=== PATIENT | male | born 1940 | race Caucasian/White ===

== ENCOUNTER 2016-11-29 06:22 | Day surgery (SDC) | payer OTHER ==
--- NOTE | ~2016-11-29 | EGD ---
EGD REPORT [facility] [address] [place]. [address] NAME: HARSHAD COBB : [birth year] STATUS : REG [facility] [place] PAT#: [id number] AGE: 76 ADM/REG DATE : 11/29/16 MR#: [id number] REPORT SERV DATE: 11/29/16 DICTATED BY: AROLDO GRACE DATE: 11/29/16 REPORT STATUS : Draft TRANS[facility]IBED BY: [facility] DATE: 11/29/16 Endoscopy Center Patient Name: Harshad Cobb Date of : 1940 Attending MD: AROLDO GRACE MD Procedure Date No Time: 11/29/2016 Procedure: Colonoscopy Indications: Hematochezia, FH of Colon Cancer - 1st degree relative, Last colonoscopy: January 2008 Referring MD: SARA HOBBS MD Medicines: Propofol per Anesthesia Complications: No immediate complications. Estimated blood loss: None. Procedure: Pre-Anesthesia Assessment: - After reviewing the risks and benefits, the patient was deemed in satisfactory condition to undergo the procedure. - Prior to the procedure, a History and Physical was performed, and patient medications and allergies were reviewed. The patient's tolerance of previous anesthesia was also reviewed. The risks and benefits of the procedure and the sedation options and risks were discussed with the patient. All questions were answered, and informed consent was obtained. Prior Anticoagulants: The patient has taken no previous anticoagulant or antiplatelet agents. ASA Grade Assessment: II - A patient with mild systemic disease. After reviewing the risks and benefits, the patient was deemed in satisfactory condition to undergo the procedure. After I obtained informed consent, the scope was passed under direct vision. Throughout the procedure, the patient's blood pressure, pulse, and oxygen saturations were monitored continuously. The CF [id number] was introduced through the anus and advanced to the cecum, identified by appendiceal orifice and ileocecal valve. The colonoscopy was somewhat difficult due to unsatisfactory bowel prep. The ileocecal valve and appendiceal orifice were photographed. The patient tolerated the procedure well. The quality of the bowel preparation was poor. The bowel preparation used was polyethylene glycol (PEG). Scope withdrawal time was nearly 12 minutes. Findings: The perianal and digital rectal examinations were normal. Pertinent negatives include normal sphincter tone. EGD REPORT [address] [address] NAME: HARSHAD COBB : [birth year] STATUS : REG [facility] [place] PAT#: [id number] AGE: 76 ADM/REG DATE : 11/29/16 MR#: [id number] REPORT SERV DATE: 11/29/16 DICTATED BY: AROLDO GRACE DATE: 11/29/16 REPORT STATUS : Draft TRANSCRIBED BY: [employer] DATE: 11/29/16 Non-bleeding internal hemorrhoids were found during retroflexion and were medium-sized and Grade I (internal hemorrhoids that do not prolapse). Multiple small and large-mouthed diverticula were found in the entire colon. A sessile polyp was found in the proximal ascending colon. The polyp was 6 mm in size. The polyp was removed with a hot snare. Resection and retrieval were complete. Estimated blood loss: none. An infiltrative non-obstructing medium-sized mass was found in the proximal rectum extending from 8 cm to 13 cm proximal to the anus. The mass was partially circumferential (involving one-half of the lumen circumference). The mass measured five cm in length. No bleeding was present. Biopsies were taken with a cold forceps for histology. Estimated blood loss: none. The exam was otherwise without abnormality. Impression: - Preparation of the colon was poor. - Non-bleeding internal hemorrhoids. - Moderate diverticulosis in the entire examined colon. - One 6 mm polyp in the proximal ascending colon. Resected and retrieved. 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 Biopsied. Biopsied. - The examination was otherwise normal. Recommendation: - Discharge patient to home (ambulatory). - Return to previous diet. - Continue present medications. - Await pathology results. - Labs today to include a CMP and CEA level. - Contrasted abdominopelvic CT scan. - Rectal EUS. - Consult Surgical Oncology. - Consult Medical Oncology. - Consult Colorectal Navigator. - Repeat colonoscopy in 1 year for surveillance. - Patient has a contact number available for emergencies. The signs and symptoms of potential delayed complications were discussed with the patient. Return to normal activities tomorrow. Written discharge instructions were provided to the patient. Procedure Code(s): --- Professional --- 47606, Colonoscopy, flexible, proximal to splenic flexure; with removal of tumor(s), polyp(s), or other lesion(s) by snare technique 43233, 59, Colonoscopy, flexible, proximal to splenic EGD REPORT [place] [id number] [facility] [place]. [address] NAME: HARSHAD COBB : [birth year] STATUS : REG [facility] [place] PAT#: [id number] AGE: 76 ADM/REG DATE : 11/29/16 MR#: [id number] REPORT SERV DATE: 11/29/16 DICTATED BY: AROLDO GRACE DATE: 11/29/16 REPORT STATUS : Draft TRANSCRIBED BY: [employer] DATE: 11/29/16 flexure; with biopsy, single or multiple Diagnosis Code(s): --- Professional --- K64.0, First degree hemorrhoids K57.30, Diverticulosis of large intestine without perforation or abscess without bleeding D12.2, Benign neoplasm of ascending colon C20, Malignant neoplasm of rectum K92.1, Melena Z80.0, Family history of malignant neoplasm of digestive organs CPT copyright 2013 [employer]. All rights reserved. The codes documented in this report are preliminary and upon gel coat sprayer review may be revised to meet current compliance requirements. AROLDO GRACE MD 11/29/2016 8:57 AM This report has been signed electronically. Number of Addenda: 0 Note Initiated On: 11/29/2016 8:17 AM Scope Withdrawal Time 0 hours 12 minutes 27 seconds [address] [id number]
[2016-11-29 10:53] LABS: A/G RATIO 0.8 (0.7-1.9); ALBUMIN 3.4 G/DL (3.5-5.0); ALKALINE PHOSPHATASE 73 U/L (45-117); BUN (BLOOD UREA NITROGEN) 8 MG/DL (6-23); CALCIUM, SERUM 9.6 MG/DL (8.5-10.4); CHLORIDE, SERUM 103 MMOL/L (96-112); CO2 (CARBON DIOXIDE) 29 MMOL/L (24-34); CREATININE 0.79 MG/DL (0.70-1.30); GFR AFRICAN AMERICAN 102 ML/MIN (>=60); GFR NON AFRICAN AMERICAN 88 ML/MIN (>=60); GLOBULIN 4.3 G/DL (2.5-4.1); GLUCOSE, SERUM 156 MG/DL (60-99); POTASSIUM, SERUM 4.4 MMOL/L (3.5-5.3); SGOT(AST) 33 U/L (5-40); SGPT(ALT) 35 U/L (5-65); SODIUM, SERUM 136 MMOL/L (135-148); TOTAL BILIRUBIN 0.8 MG/DL (0-1.2); TOTAL PROTEIN 7.7 G/DL (6.0-8.5)
[2016-11-29 10:54] LABS: CEA 8.4 NG/ML
== END 2016-11-29 23:59 | disposition home or self-care (01) ==
LOC: DMU 06:22
PROVIDERS: Internal Medicine Gastroenterology
PROC: 0DBK8ZZ Excision of Ascending Colon, Via Natural or Artificial Opening Endoscopic (ICD-10-PCS; principal; 2016-11-29 08:31)
PROC: 0DBP8ZX Excision of Rectum, Via Natural or Artificial Opening Endoscopic, Diagnostic (ICD-10-PCS; 2016-11-29 08:31)
DX: C20 Malignant neoplasm of rectum (principal); D12.2 Benign neoplasm of ascending colon; I10 Essential (primary) hypertension; K64.0 First degree hemorrhoids; K57.30 Diverticulosis of large intestine without perforation or abscess without bleeding; Z85.46 Personal history of malignant neoplasm of prostate; Z80.0 Family history of malignant neoplasm of digestive organs
CPT/HCPCS: 74177; 80053; 82378; 82962; 88305; Q9967